=== PATIENT | male | born 1945 | race Two or more races ===

== ENCOUNTER 2025-02-03 07:45 | Day surgery (SDC) | payer MEDICARE, MEDICAID, SELFPAY ==
[2025-02-03] VITALS (11 sets, daily range): BP systolic 133–173; BP diastolic 69–84; PULSE 66–76; RESP 12–21; TEMP 36.6–37; O2SAT 95–99; BMI 30.1
--- NOTE | 2025-02-03 09:10 | EKG_ITS ---
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
--- NOTE | 2025-02-03 09:15 | CHAP ---
Prayed with patient before his procedure.
[2025-02-03] MEDS: RINGERS LACTATED 1000 ML 1,000 ML 60 ML IV (10:06)
--- NOTE | 2025-02-03 10:39 | SUR.PHASEII ---
1039 patient arrived to recovery resting comfortably in [facility], awake and alert, breathing unlabored, vital signs stable, denies pain and nausea, report received from Jenny GONZALEZ
--- NOTE | 2025-02-03 11:20 | SUR.PHASEII ---
1120 Patient meets discharge criteria from recovery, awake and alert, breathing unlabored, vital signs stable, denies pain and nausea, drinking water; tolerating well, assisted with dressing into his clothing by his , discharge instructions given to patient and patients with the assistance of the hospital validation leader Erin, signed discharge instructions. Patient given all his belongings prior to discharge, transported via wheelchair and left in a private vehicle.
== END 2025-02-03 11:20 | disposition home or self-care (01) ==
PROVIDERS: PCP Physician Assistant; Referring Provider Specialist; Visit Provider Specialist
PROC: (CPT 43239; principal; 2025-02-03 09:15)
DX: K44.9 Diaphragmatic hernia without obstruction or gangrene (principal); K29.70 Gastritis, unspecified, without bleeding; K21.00 Gastro-esophageal reflux disease with esophagitis, without bleeding; R94.31 Abnormal electrocardiogram [ECG] [EKG]
CPT/HCPCS: 43239; 93005; A4649; J1200; J2250; J3010; J7120; A9270

== ENCOUNTER 2025-04-07 09:00 | Day surgery (SDC) | payer MEDICARE, MEDICAID, SELFPAY ==
[2025-04-06 13:00] VITALS: BMI 31.6
[2025-04-07] VITALS (13 sets, daily range): BP systolic 152–170; BP diastolic 68–99; PULSE 6–89; RESP 10–22; TEMP 36.7–36.8; O2SAT 95–100; BMI 44.4
[2025-04-07] MEDS: RINGERS LACTATED 1000 ML 1,000 ML 60 ML IV (09:30)
--- NOTE | 2025-04-07 10:53 | SUR.PHASEII ---
1015 patient into recovery with no acute distress noted, v/s stable, no complaints of pain or nausea at this time. patient repositions self for comfort. report received from Jenny GONZALEZ. 1035 patient v/s remain stable, patient passing flatus, abdomen soft upon palpation. 1046 patient ambulates with minimal assistance, patietn etting dressed to go home. 1053 discharge instructions given to patient's granddaughter atnoinette (angolan speaking) whom is accompanied by patient's . patient discharged home.
== END 2025-04-07 10:53 | disposition home or self-care (01) ==
PROVIDERS: PCP Physician Assistant; Referring Provider Specialist; Visit Provider Specialist
PROC: 0DJD8ZZ Inspection of Lower Intestinal Tract, Via Natural or Artificial Opening Endoscopic (ICD-10-PCS; CPT 45378; principal; 2025-04-07 08:30)
DX: K64.9 Unspecified hemorrhoids (principal); K57.30 Diverticulosis of large intestine without perforation or abscess without bleeding; G20.A1 Parkinson's disease without dyskinesia, without mention of fluctuations
CPT/HCPCS: 45378; A4649; J1200; J2250; J3010; J7120